=== PATIENT | female | born 2000 | race Caucasian/White ===

== ENCOUNTER 2021-09-10 14:00 | Emergency (ER) | payer SELFPAY ==
[2021-09-10 14:14] VITALS: BP 109/76; PULSE 79; RESP 16; TEMP 36.9; O2SAT 96; BMI 19.8
== END 2021-09-10 16:18 | disposition left against medical advice (07) ==
LOC: HO.ED 16:16
PROVIDERS: Emergency Provider Emergency Medicine
DX: R20.0 Anesthesia of skin (principal)
CPT/HCPCS: 99281; 99282

== ENCOUNTER 2022-04-08 11:59 | Emergency (ER) | payer OTHER, SELFPAY ==
--- NOTE | ~2022-04-08 | XR_ITS ---
EXAMINATION: 1. Radiographs left hand/wrist 2. Radiographs left knee CLINICAL INFORMATION: Pain after fall COMPARISON: None TECHNIQUE: 4 views of the left hand/wrist and 4 views of the left knee were obtained. FINDINGS: Left hand/wrist: Visualized portion of the distal left radius and ulna demonstrate no fracture. Carpal rows are maintained. No carpal bone fracture. No metacarpal or phalangeal fracture. No focal soft tissue swelling. No radiopaque foreign body. Left knee: No fracture or dislocation. No suprapatellar joint effusion. Joint spaces are well-maintained. No focal soft tissue swelling the anterior knee. XR/XR knee LT 4V IMPRESSION: Grossly unremarkable radiographs of the left hand/wrist and left knee.
--- NOTE | ~2022-04-08 | CT_ITS ---
EXAMINATION: CT FACIAL BONES WITHOUT CONTRAST CLINICAL INFORMATION: Fall. Head injury. COMPARISON: None TECHNIQUE: Axial images through the facial bones without contrast. Sagittal and coronal reconstructions on the technologist workstation were performed. This CT examination was performed using dose optimization techniques as appropriate, variously including the following: *Automated exposure control *Adjustment of mA and/or kV according to patient size (this includes techniques or standardized protocols for targeted exams where dose is matched to indication/reason for exam; i.e. extremities or head) *Use of iterative reconstruction technique DLP: 304 mGy-cm FINDINGS: There is a left nasal bone fracture of uncertain age. No other fracture is seen. There is mild membranous soft tissue thickening and small polyps or cysts seen in the maxillary sinuses. Paranasal sinuses are otherwise clear. Mastoid air cells and middle ears are clear. The temporomandibular joints are normal. The orbits are normal. CT/CT facial bones wo con IMPRESSION: Left nasal bone fracture of uncertain age. Mild inflammatory changes of the maxillary sinuses.
--- NOTE | ~2022-04-08 | XR_ITS ---
EXAMINATION: 1. Radiographs left hand/wrist 2. Radiographs left knee CLINICAL INFORMATION: Pain after fall COMPARISON: None TECHNIQUE: 4 views of the left hand/wrist and 4 views of the left knee were obtained. FINDINGS: Left hand/wrist: Visualized portion of the distal left radius and ulna demonstrate no fracture. Carpal rows are maintained. No carpal bone fracture. No metacarpal or phalangeal fracture. No focal soft tissue swelling. No radiopaque foreign body. Left knee: No fracture or dislocation. No suprapatellar joint effusion. Joint spaces are well-maintained. No focal soft tissue swelling the anterior knee. XR/XR hand wrist LT IMPRESSION: Grossly unremarkable radiographs of the left hand/wrist and left knee.
--- NOTE | ~2022-04-08 | CT_ITS ---
EXAMINATION: CT CERVICAL SPINE WITHOUT CONTRAST CLINICAL INFORMATION: Fall. COMPARISON: None TECHNIQUE: Axial images through the cervical spine without contrast. Sagittal and coronal reconstructions on the technologist workstation were performed. This CT examination was performed using dose optimization techniques as appropriate, variously including the following: *Automated exposure control *Adjustment of mA and/or kV according to patient size (this includes techniques or standardized protocols for targeted exams where dose is matched to indication/reason for exam; i.e. extremities or head) *Use of iterative reconstruction technique DLP: 316 mGy-cm. FINDINGS: Bone alignment is normal. No fracture or dislocation is seen. Disc spaces are normal. Prevertebral soft tissues are normal. Visualized lung apices are clear. CT/CT cervical spine wo con IMPRESSION: Unremarkable examination. Fleischner guidelines were followed.
--- NOTE | ~2022-04-08 | CT_ITS ---
EXAMINATION: CT HEAD WITHOUT CONTRAST CLINICAL INFORMATION: Fall. Head injury. COMPARISON: None TECHNIQUE: Contiguous axial imaging was performed from the skull base to vertex without intravenous administration of contrast. This CT examination was performed using dose optimization techniques as appropriate, variously including the following: *Automated exposure control *Adjustment of mA and/or kV according to patient size (this includes techniques or standardized protocols for targeted exams where dose is matched to indication/reason for exam; i.e. extremities or head) *Use of iterative reconstruction technique DLP: 626 mGy-cm FINDINGS: There is no evidence of acute intracranial hemorrhage or territorial infarction. No abnormal mass effect or midline shift is seen. Clark to white matter differentiation is well preserved. No extra-axial fluid collections are identified. The ventricles are normal in size. There is no abnormal attenuation within the brain parenchyma. The osseous structures and soft tissues are normal. The mastoid air cells and visualized portions of the paranasal sinuses are well aerated. CT/CT head/brain wo con IMPRESSION: Unremarkable exam.
[2022-04-08 12:13] VITALS: BP 130/92; PULSE 136; RESP 16; TEMP 36.7; O2SAT 96; BMI 23.0
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
[2022-04-08 12:57] LABS: Appearance Urine HAZY; Color Urine YELLOW; Glucose Urine UA NEG (NEG); Leukocyte Esterase Urine NEG (NEG); Nitrite Urine NEG (NEG); Specific Gravity - Urine >= 1.030 (1.005-1.025); Urine Blood NEG (NEG); Urine Ketones 5 MG/DL (NEG); Urine Protein TRACE MG/DL (NEG-TRACE)
[2022-04-08 13:00] LABS: UPreg QC Valid YES; Urine Pregnancy NEGATIVE (NEGATIVE)
[2022-04-08 13:06] LABS: Basophils Percent Auto 0.4 % (0-2); Eosinophils Absolute Auto 0.1 X10*3/uL (0.0-0.4); Eosinophils Percent Auto 1.6 % (0-4); Hematocrit 36.6 % (37.0-47.0); Hemoglobin 12.2 g/dl (12.0-16.0); Imm Gran Abs Auto 0.01 X10*3/uL (0.00-0.03); Imm Gran Pct Auto 0.1 % (0.0-0.4); Lymphocytes Percent Auto 47.6 % (20-40); MANUAL DIFF FLAG SCAN; Mean Corpuscular HGB Conc 33.3 g/dl (31.0-35.0); Mean Corpuscular Hemoglobin 27.1 pg (27.0-33.0); Mean Corpuscular Volume 81.3 fL (80.0-98.0); Monocytes Absolute Auto 0.9 X10*3/uL (0.1-1.2); Monocytes Percent Auto 11.1 % (2-11); NRBC Pct Auto 0.2 /100WBC (0.0-0.2); Neutrophils Absolute Auto 3.3 x10*3/uL (2.0-8.3); Neutrophils Percent Auto 39.2 % (45-73); PLT CLUMP 1; Red Cell Distribution Width 13.1 % (11.0-16.0); SCAN SMEAR FLAG 1
--- NOTE | 2022-04-08 13:22 | ECG_ITS ---
Test Reason : TACKY Blood Pressure : / mmHG Vent. Rate : 088 BPM Atrial Rate : 088 BPM P-R Int : 112 ms QRS Dur : 080 ms QT Int : 356 ms P-R-T Axes : 055 083 026 degrees QTc Int : 430 ms Normal sinus rhythm Normal ECG No previous ECGs available Referred By: Elizabeth Davis Electronically Signed By:ANJANA CONTRERAS MD
[2022-04-08 13:26] LABS: Ethanol < 10 mg/dL
[2022-04-08 13:30] LABS: Alanine Aminotransferase 15 U/L (0-31); Albumin Level 4.3 g/dL (3.5-5.0); Alkaline Phosphatase 102 U/L (39-117); Anion Gap 12 (12-20); Aspartate Amino Transferase 19 U/L (5-31); Bilirubin Total 0.6 mg/dL (0.0-1.0); Blood Urea Nitrogen 13 mg/dL (9-16); Calcium 9.2 mg/dL (8.4-10.2); Carbon Dioxide 24 mmol/L (22-29); Chloride 104 mmol/L (96-108); Creatinine Clr Calc Pharmacy 83.1; Estimated Glomerular Filt Rate > 60; Glucose Random 81 mg/dL (60-115); Magnesium 2.1 mg/dL (1.6-2.6); Potassium 3.3 mmol/L (3.3-5.1); Sodium 137 mmol/L (135-145); Total Protein 7.2 g/dL (6.5-8.0)
[2022-04-08 13:40] LABS: Amphetamine Screen Urine Not Detected (Not Detect); Barbiturates, Urine Not Detected (Not Detect); Benzodiazepines Screen Urine Not Detected (Not Detect); Cannabinoid Screen Urine Not Detected (Not Detect); Cocaine Screen Urine Not Detected (Not Detect); Fentanyl, urine POSITIVE (Not Detect); Opiate Screen Urine POSITIVE (Not Detect); Phencyclidine Screen Urine POSITIVE (Not Detect)
--- NOTE | 2022-04-08 13:42 | PC.NURSE ---
PT ELOPED AND LEFT OUT THE AMBULANCE BAY WITHOUT ALERTING STAFF.
[2022-04-08 13:45] LABS: White Blood Count 8.4 X10*3/uL (4.8-10.8)
--- NOTE | 2022-04-08 13:46 | MHC.RECOVSUP ---
Recovery Support note: This automatic typewriter inspector met with patient to discuss substance use and treatment options. Patient reports using 4 bundles of heroin daily and that she is interested in getting into detox. Referral sent to [facility] however patient eloped shortly after.
[2022-04-08 13:47] LABS: SLIDE REVIEW VERIFIED
== END 2022-04-08 13:46 | disposition left against medical advice (07) ==
PROVIDERS: Physician Assistant Medical; Emergency Provider Emergency Medicine
DX: S83.92XA Sprain of unspecified site of left knee, initial encounter (principal); S63.92XA Sprain of unspecified part of left wrist and hand, initial encounter; S60.512A Abrasion of left hand, initial encounter; L03.114 Cellulitis of left upper limb; S09.90XA Unspecified injury of head, initial encounter; S09.93XA Unspecified injury of face, initial encounter; F11.10 Opioid abuse, uncomplicated; V18.0XXA Pedal cycle driver injured in noncollision transport accident in nontraffic accident, initial encounter; Y93.55 Activity, bike riding; Y92.410 Unspecified street and highway as the place of occurrence of the external cause; Y99.9 Unspecified external cause status
CPT/HCPCS: 36415; 70450; 70486; 72125; 73110; 73130; 73564; 80053; 80307; 81003; 81025; 82077; 82550; 83735; 85025; 93005; 99283; 99284

== ENCOUNTER 2023-01-12 15:02 | Emergency (ER) | payer OTHER, SELFPAY ==
[2023-01-12 15:30] VITALS: BP 103/64; PULSE 88; RESP 12; TEMP 36.3; O2SAT 100; BMI 21.8
[2023-01-12 15:32] VITALS: BP 98/67; PULSE 110; O2SAT 95
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
[2023-01-12 16:17] VITALS: BP 114/79; PULSE 74; RESP 16; TEMP 36.8
--- NOTE | 2023-01-12 17:11 | ED.PSYCH ---
HPI - Psych General Chief Complaint: Psychiatric Symptoms Stated Complaint: SEC 12, SI(w/ plan) per EMS Time Seen by Provider: 01/12/23 15:55 Source: other (Patient's nurse) Mode of arrival: EMS Limitations: altered mental status History of Present Illness HPI Narrative: Patient comes to the emergency room via EMS. Patient is too somnolent at this time to provide any history. I obtained the history from patient's nurse. EMS reported to the patient's nurse the patient has plans to overdose using heroin cocaine. Patient is on a Section 12. Related Data Previous Rx's Medication Instructions Recorded cephalexin 500 mg capsule 500 mg PO Q6H 10 days #40 caps 04/08/22 sulfamethoxazole 800 1 tab PO BID 10 days #20 tabs 04/08/22 mg-trimethoprim 160 mg tablet (Bactrim DS) Allergies Allergy/AdvReac Type Severity Reaction Status Date / Time No Known Allergies Allergy Verified 09/10/21 14:13 Review of Systems Review of Systems: Yes Unobtainable due to mental condition PMFSH Past Medical History Source: unable to obtain Medical History No known health problems Social History Social History Advance Directives: No Physical Exam Vital Signs: Vital Signs: Last Vital Signs Temp 97.9 F 01/12/23 18:00 Pulse 74 01/12/23 18:00 Resp 16 01/12/23 18:00 BP 106/56 L 01/12/23 18:00 Pulse Ox 97 01/12/23 18:00 O2 Del Method 01/12/23 18:00 BMI result Body Mass Index 21.8 Const: Other: Appearance: Somnolent, easily arousable, wakes up and falls back asleep. Eyes: Pupils equal, round and reactive to light. ENT: Pharynx normal. Neck: Normal inspection. Neck supple. No lymph nodes noted. No crepitus CVS: Normal heart rate and rhythm. Pulses normal. Normal S1 and S2 Respiratory: No respiratory distress. Breath sounds normal. No Wheezing. No rales Abdomen: Soft and nontender. No rigidity. No distention. Skin: Skin warm and dry. Normal skin color. Normal skin turgor. Extremities: No lower extremity edema. No Lacerations. No Rash Neuro: To somnolent, unable to participate in cranial nerve assessment Psych: calm, somnolent Course Course Course Narrative: -patient's vitals are stable. Patient's oxygen saturation 100% on room air. -patient is easily arousable but falls asleep -of patient's labs pending. -patient is on a Section 12 it was started by PD -care team consult pending -physician observation started at 17:10 -21:49, patient feeling restless, states that she is withdrawing from opiates. Patient given 2 mg p.o. Ativan and 50 of Benadryl Medical Decision Making Differential Diagnosis Differential Diagnoses: The differential diagnosis associated with the presentation includes (Anxiety, depression, SI) Admission/Observation Consideration of admission/observation: Escalation of care including admission/observation considered (Patient is under observation waiting to be seen by the care team) Lab Data MDM Lab Attestation statement: I reviewed the patient's lab results. 01/12/23 18:28 01/12/23 18:28 Labs: Lab Results 01/12/23 01/12/23 01/12/23 Range/Units 18:28 18:28 18:28 WBC 6.8 (4.8-10.8) X10*3/uL RBC 4.26 (4.20-5.50) X10*6/uL Hgb 11.7 L (12.0-16.0) g/dl Hct 36.2 L (37.0-47.0) % MCV 85.0 (80.0-98.0) fL MCH 27.5 (27.0-33.0) pg MCHC 32.3 (31.0-35.0) g/dl RDW 13.1 (11.0-16.0) % Plt Count 285 (160-400) X10*3/uL MPV 8.8 L (9.4-12.3) fL Immature Gran % (Auto) 0.1 (0.0-0.4) % Neut % (Auto) 41.3 L (45-73) % Lymph % (Auto) 45.8 H (20-40) % [place] % (Auto) 10.1 (2-11) % Eos % (Auto) 2.0 (0-4) % Baso % (Auto) 0.7 (0-2) % Lymph # (Auto) 3.1 (1.2-4.9) X10*3/uL [place] # (Auto) 0.7 (0.1-1.2) X10*3/uL Eos # (Auto) 0.1 (0.0-0.4) X10*3/uL Baso # (Auto) 0.1 (0.0-0.2) X10*3/uL Abs Immat Gran (auto) 0.01 (0.00-0.03) X10*3/uL Absolute Neuts (auto) 2.8 (2.0-8.3) x10*3/uL Absolute Nucleated RBC 0.000 (0.0-0.012) X10*3/uL Nucleated RBC % (auto) 0.0 (0.0-0.2) /100WBC Sodium 140 (135-145) mmol/L Potassium 3.9 (3.3-5.1) mmol/L Chloride 110 H (96-108) mmol/L Carbon Dioxide 20 L (22-29) mmol/L Anion Gap 14 (12-20) BUN 11 (9-16) mg/dL Creatinine 0.72 (0.5-1.4) mg/dL Estim Creat Clear Calc 95.3 Estimated GFR > 60 Random Glucose 108 (60-115) mg/dL Calcium 8.5 D (8.4-10.2) mg/dL Total Bilirubin 0.2 (0.0-1.0) mg/dL Direct Bilirubin < 0.2 (0.0-0.5) mg/dL AST 13 (5-31) U/L ALT 10 (0-31) U/L Alkaline Phosphatase 85 (39-117) U/L Total Protein 6.0 L (6.5-8.0) g/dL Albumin 3.6 (3.5-5.0) g/dL Beta HCG, Quant < 2 mIU/mL Ethyl Alcohol < 10 mg/dL COVID-19 ([facility]) Negative (Negative) COVID-19 Clin Com See Note Discharge Plan Discharge Clinical Impression: Suicidal ideation, Substance abuse Patient Disposition: Still a Patient Prescriptions: No Action sulfamethoxazole-trimethoprim [Bactrim DS] 800-160 mg tablet 1 tab PO BID 10 Days Qty: 20 0RF cephalexin 500 mg capsule 500 mg PO Q6H 10 Days Qty: 40 0RF
[2023-01-12 18:00] VITALS: BP 106/56; PULSE 74; RESP 16; TEMP 36.6; O2SAT 97
--- NOTE | 2023-01-12 18:00 | MHC.EDTECH ---
1800 rounding and vitals sign taken ,pt lab drawn and covid swab done ,and to lab .
[2023-01-12 18:31] LABS: MANUAL DIFF FLAG NO
[2023-01-12 18:39] LABS: Basophils Absolute Auto 0.1 X10*3/uL (0.0-0.2); Basophils Percent Auto 0.7 % (0-2); Eosinophils Absolute Auto 0.1 X10*3/uL (0.0-0.4); Hematocrit 36.2 % (37.0-47.0); Hemoglobin 11.7 g/dl (12.0-16.0); Imm Gran Abs Auto 0.01 X10*3/uL (0.00-0.03); Imm Gran Pct Auto 0.1 % (0.0-0.4); Lymphocytes Absolute Auto 3.1 X10*3/uL (1.2-4.9); Lymphocytes Percent Auto 45.8 % (20-40); Mean Corpuscular HGB Conc 32.3 g/dl (31.0-35.0); Mean Corpuscular Hemoglobin 27.5 pg (27.0-33.0); Mean Platelet Volume 8.8 fL (9.4-12.3); Monocytes Absolute Auto 0.7 X10*3/uL (0.1-1.2); Monocytes Percent Auto 10.1 % (2-11); Neutrophils Absolute Auto 2.8 x10*3/uL (2.0-8.3); Neutrophils Percent Auto 41.3 % (45-73); Platelet Count 285 X10*3/uL (160-400); Red Blood Count 4.26 X10*6/uL (4.20-5.50); Red Cell Distribution Width 13.1 % (11.0-16.0); White Blood Count 6.8 X10*3/uL (4.8-10.8)
[2023-01-12 18:48] LABS: COVID-19 Test Negative (Negative); IDNOW Serial# BCCEAD1C
[2023-01-12 19:01] LABS: Alanine Aminotransferase 10 U/L (0-31); Albumin Level 3.6 g/dL (3.5-5.0); Alkaline Phosphatase 85 U/L (39-117); Anion Gap 14 (12-20); Aspartate Amino Transferase 13 U/L (5-31); Bilirubin Direct < 0.2 mg/dL (0.0-0.5); Bilirubin Total 0.2 mg/dL (0.0-1.0); Blood Urea Nitrogen 11 mg/dL (9-16); Calcium 8.5 mg/dL (8.4-10.2); Carbon Dioxide 20 mmol/L (22-29); Chloride 110 mmol/L (96-108); Creatinine Clr Calc Pharmacy 95.3; Estimated Glomerular Filt Rate > 60; Ethanol < 10 mg/dL; Glucose Random 108 mg/dL (60-115); HCG Quantitative < 2 mIU/mL; Potassium 3.9 mmol/L (3.3-5.1); Sodium 140 mmol/L (135-145)
--- NOTE | 2023-01-12 19:12 | PC.NURSE ---
assumed care of pt
--- OUTSIDE RECORDS SUMMARY | 2023-01-12 21:34 | XMS_ITS | Continuity of Care Document ---
:2000 Author Organization [facility] Address [address] [place] [address]- Care Team Providers Name Role Phone Not on Staff, PCP Primary Care Physician Unavailable [facility] Date[facility]s): 06/07/21 - 06/07/[address] [address]- Encounter Diagnosis Opiate overdose (Final) - 06/07/21 Discharge Disposition: A-D/C Home Attending Physician: Brie Whitfield MD Admitting Physician: Brie Whitfield MD Referring Physician: Not on Staff, Referring MD Allergies, Adverse Reactions, Alerts Substance Reaction Severity Status NKA Active Immunizations Given and Recorded Vaccine Date Status Refusal Reason Meningococcal Conjugate Vaccine 04/04/16 Given Meningococcal Conjugate Vaccine1 02/22/10 Given influenza virus vaccine, inactivated 08/07/14 Given influenza virus vaccine, inactivated2 01/26/11 Given influenza virus vaccine, live3 12/06/12 Given Human Papillomavirus Vaccine4 01/26/11 Given Human Papillomavirus Vaccine5 02/22/10 Given Human Papillomavirus Vaccine6 12/23/09 Given tetanus/diphtheria/pertussis, acel(Tdap)7 01/26/11 Given Varicella Virus Vaccine8 12/23/09 Given Varicella Virus Vaccine 12/01/99 Given Influenza Inactive (IM) (oldterm)9 09/28/09 Given influ virus vac, H1N1, live(oldterm) 09/28/09 Given Measles/Mumps/Rubella Virus Vaccine 12/26/02 Given Measles/Mumps/Rubella Virus Vaccine 12/01/99 Given Poliovirus Vaccine, Inactivated 12/26/02 Given Poliovirus Vaccine, Inactivated 03/23/99 Given Poliovirus Vaccine, Inactivated 98 Given Poliovirus Vaccine, Inactivated 98 Given Diphth/Pertussis,Acel/Tetanus (oldterm) 12/26/02 Given Diphth/Pertussis,Acel/Tetanus (oldterm) 12/01/99 Given Diphth/Pertussis,Acel/Tetanus (oldterm) 03/23/99 Given Diphth/Pertussis,Acel/Tetanus (oldterm) 98 Given Diphth/Pertussis,Acel/Tetanus (oldterm) 98 Given Pneumococcal Conjugate (PCV7) (oldterm) 08/02/00 Given Haemophilus B Conj Vaccine (oldterm) 12/01/99 Given Haemophilus B Conj Vaccine (oldterm) 03/23/99 Given Haemophilus B Conj Vaccine (oldterm) 98 Given Haemophilus B Conj Vaccine (oldterm) 98 Given Hepatitis B Vaccine (old term) 03/23/99 Given Hepatitis B Vaccine (old term) 98 Given Hepatitis B Vaccine (old term) 98 Given 1Admin Note: vis 12.23.20072Admin Note: VIS dated 07/05/10 and [id number] Note: VIS DATED 05/27/2012 GIVEN.4Admin Note: VIS DATED 02/22/10. [id number] Note: vis 12.28.06 [id number] Note: gardasil #1 / vis 12/28/06 [id number] Note: VIS dated 10/13/088Admin Note: vis given 02/06/089Admin Note: vis 07/04 Medications acetaminophen 325 mg oral tablet 650 mg, By Mouth, Every 4 hours, PRN, (1-3), may give 325mg per patient preference and re-dose with 325mg within 4 hours, if needed. Patient should only receive a total of 650mg of Acetaminophen every 4 hours., Refills 0, Maintenance, Pain , Mild, 0... Start Date: 04/02/20 Status: Orderedibuprofen 800 mg oral tablet 800 mg, 1, tablet, By Mouth, Every 8 hours, PRN, (4-6), may give 400mg per patient preference and re-dose with 400mg within 8 hours if needed. Patient should only receive a total of 800mg of Ibuprofen every 8 hours., Refills 0, Maintenance, Pain , M... 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 Sleep problem (initiation)(Confirmed) 12/23/09 Active Vital Signs Most recent to oldest 1 2 3 [Reference Range]: Oxygen Saturation [94-100 %] 99 % 100 % 100 % (06/07/21 8:40 PM) (06/07/21 6:38 PM) (06/07/21 5:0 9 PM) Pulse Rate [55-90 bpm] 68 bpm 90 bpm 78 bpm (06/07/21 8:40 PM) (06/07/21 6:38 PM) (06/07/21 5:0 9 PM) Blood Pressure [90-138/55-84 mm 106/50 mm Hg 135/99 mm Hg 130/67 mm Hg Hg] (06/07/21 8:40 PM) (06/07/21 5:09 PM) (06/07/21 4:2 8 PM) Respiratory Rate [16-30 br/min] 14 br/min 14 br/min 14 br/min *L* *L* *L* (06/07/21 8:40 PM) (06/07/21 6:38 PM) (06/07/21 5:0 9 PM) Temperature [96.8-100.4 DegF] 98.8 DegF 98.1 DegF (06/07/21 8:40 PM) (06/07/21 4:25 PM) Liters per Minute 2 L/min (06/07/21 4:25 PM) Mode of Delivery (Oxygen) Room air Room air Room a ir (06/07/21 8:40 PM) (06/07/21 6:38 PM) (06/07/21 5:0 9 PM) Temperature Route Oral Oral (06/07/21 8:40 PM) (06/07/21 4:25 PM) Social History Social History Type Response Smoking Status 5-9 cigarettes (between 1/4 to 1/2 pack)/day in last 30 days entered on: 03/27/19 Sex
--- OUTSIDE RECORDS SUMMARY | 2023-01-12 21:34 | XMS_ITS | Continuity of Care Document ---
:2000 Author Organization [facility] Address [address] [place] [address]- Care Team Providers Name Role Phone Not on Staff, PCP Primary Care Physician Unavailable [facility] Date[facility]s): 07/[facility]/20 - 07/01/[address] [address]- [facility] Encounter Diagnosis Acute alcohol intoxication (Final) - 07/01/20 Discharge Disposition: A-D/C Home Attending Physician: Donal Devine DO Admitting Physician: Donal Devine DO Referring Physician: Not on Staff, Referring MD [...] vis 12.23.20072Admin Note: VIS dated 07/05/10 and [id number] Note: VIS DATED 05/27/2012 GIVEN.4Admin Note: VIS DATED 02/22/10. [id number] Note: vis 12.28.06 [id number] Note: gardasil #1 / vis 12/28/06 [id number] Note: VIS dated 10/13/088Admin Note: vis given [...] Active Vital Signs Most recent to oldest [Reference Range]: 1 2 Oxygen Saturation [94-100 %] 100 % 100 % (07/01/20 11:12 PM) (07/01/20 9:34 PM) Pulse Rate [55-90 bpm] 70 bpm 91 bpm (07/01/20 11:12 PM) *H* (07/01/20 9:34 PM) Blood Pressure [90-138/55-84 mm Hg] 117/70 mm Hg 135/ 86 mm Hg (07/01/20 11:12 PM) (07/01/20 9:34 PM) Respiratory Rate [16-30 br/min] 18 br/min 18 br/mi n (07/01/20 11:12 PM) (07/01/20 9:34 PM) Temperature [96.8-100.4 DegF] 97.7 DegF 100.0 DegF (07/01/20 11:12 PM) (07/01/20 9:34 PM) Mode of Delivery (Oxygen) Room air Room air (07/01/20 11:12 PM) (07/01/20 9:34 PM) Blood pressure sites Arm, left Arm, left (07/01/20 11:12 PM) (07/01/20 9:34 PM) Temperature Route Oral Oral (07/01/20 11:12 PM) (07/01/20 9:34 PM) Social History Social History Type Response Smoking Status 5-9 cigarettes (between 1/4 to 1/2 pack)/day in last 30 days entered on: 03/27/19 Sex
--- OUTSIDE RECORDS SUMMARY | 2023-01-12 21:35 | XMS_ITS | Continuity of Care Document ---
:2000 Author Organization [facility] Address [address] [place] [phone]- Care Team Providers Name Role Phone Brittany He MD Primary Care Physician [facility] Date(s): 02/20/22 - 02/20/[address] [address]- Discharge Disposition: A-D/C AMA Attending Physician: Maria Fernanda Zavala MD Admitting Physician: Maria Fernanda Zavala MD Referring Physician: Not on Staff, Referring MD Allergies, Adverse Reactions, Alerts No Known Allergies Immunizations Given and Recorded Vaccine Date Status Refusal Reason tetanus/diphtheria/pertussis, acel(Tdap) 07/14/21 Given tetanus/diphtheria/pertussis, acel(Tdap)1 01/26/11 Given Meningococcal Conjugate Vaccine 04/04/16 Given Meningococcal Conjugate Vaccine2 02/22/10 Given influenza virus vaccine, inactivated 08/07/14 Given influenza virus vaccine, inactivated3 01/26/11 Given influenza virus vaccine, live4 12/06/12 Given Human Papillomavirus Vaccine5 01/26/11 Given Human Papillomavirus Vaccine6 02/22/10 Given Human Papillomavirus Vaccine7 12/23/09 Given Varicella Virus Vaccine8 12/23/09 Given Varicella [...] Vaccine (old term) 98 Given 1Admin Note: VIS dated 10/13/082Admin Note: vis 12.23.20073Admin Note: VIS dated 07/05/10 and [id number] Note: VIS DATED 05/27/2012 GIVEN.5Admin Note: VIS DATED 02/22/10. [id number] Note: vis 12.28.06 [id number] Note: gardasil #1 / vis 12/28/06 [id number] Note: vis given 02/06/089Admin Note: vis 07/04 Medications Doxycycline 100 mg, By Mouth, 2 times a day, Maintenance, 01/06/22 18:02:00 EST Start Date: 01/06/22 Stop Date: 01/13/22 Status: Ordereddoxycycline monohydrate 100 mg oral capsule 1 capsule = 100 mg, By Mouth, 2 times a day, for 10 days, # 20 capsule, 0 Refills, Acute 02/26/22 14:32:00 EDT, 02/16/22 14:32:00 EDT, Capsule, [facility]/pharmacy #[id number], Partial fill upon patient request if the prescription is for a schedule II opioid drug.... Start Date: 02/16/22 Stop Date: 02/26/22 Status: OrderedMacrobid macrocrystals-monohydrate 100 mg oral capsule 1 capsule = 100 mg, By Mouth, 2 times a day, for 5 days, # 10 capsule, 0 Refills, Acute 02/21/22 14:32:00 EDT, 02/16/22 14:32:00 EDT, Capsule, [facility]/pharmacy #[id number], Partial fill upon patient request if the prescription is for a schedule II opioid drug.,... Start Date: 02/16/22 Stop Date: 02/21/22 Status: Orderedondansetron 4 mg oral tablet 1 tablet = 4 mg, By Mouth, Every 8 hours, PRN Nausea & Vomiting, # 20 tablet, 0 Refills, Maintenance, 07/23/21 16:13:00 EDT, Tablet, [id number], Partial fill upon patient request if the prescription is for a schedule II opioid drug., 165, cm,... Start Date: 07/23/21 Status: Orderedondansetron 4 mg oral tablet, disintegrating 1 tablet = 4 mg, By Mouth, Every 8 hours, PRN as needed for nausea/vomiting, # 9 tablet, 0 Refills, Maintenance, 12/04/21 12:22:00 EST, DIS Tablet, [id number], Partial fill upon patient request, 165, cm, 06/26/21 18:36:00 EDT, Height, 55, kg,... Start Date: 12/04/21 Stop Date: 12/07/21 Status: OrderedSuboxone 8 mg-2 mg Sublingual Film 2 film, Sublingual, Daily, dissolve under the tongue, # 14 film, 0 Refills, Maintenance, 07/23/21 16:13:00 EDT, Film, [facility]/pharmacy #[id number], PRITESH-X: [id number], 2 film Sublingual Daily,Instr:dissolve under the tongue, 165, cm, 06/26/21 18:36:00 EDT, Heigh... 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 Sleep problem (initiation)(Confirmed) 12/23/09 Active Vital Signs Most recent to oldest [Reference Range]: 1 Oxygen Saturation [94-100 %] 99 % (02/20/22 7:23 AM) Pulse Rate [55-90 bpm] 80 bpm (02/20/22 7:23 AM) Blood Pressure [90-138/55-84 mm Hg] 102/76 mm Hg (02/20/22 7:23 AM) Respiratory Rate [16-30 br/min] 16 br/min (02/20/22 7:23 AM) Temperature [96.8-100.4 DegF] 97.8 DegF (02/20/22 7:23 AM) Mode of Delivery (Oxygen) Room air (02/20/22 7:23 AM) Blood pressure sites Arm, right (02/20/22 7:23 AM) Temperature Route Oral (02/20/22 7:23 AM) Social History Social History Type Response Smoking Status 5-9 cigarettes (between 1/4 to 1/2 pack)/day in last 30 days entered on: 03/27/19 Sex
--- OUTSIDE RECORDS SUMMARY | 2023-01-12 21:35 | XMS_ITS | Continuity of Care Document ---
:2000 Author Organization [facility] Address [address] [place] [address]- Care Team Providers Name Role Phone Neri YANEZ, Brittany Primary Care Physician [facility] Date[facility]s): 11/[facility]/19 - 11/06/[address] [address]- [facility] Attending Physician: Angelika Baxter CNM Allergies, Adverse Reactions, Alerts Substance Reaction Severity [...] vis 12.23.20072Admin Note: VIS dated 07/05/10 and [id number] Note: VIS DATED 05/27/2012 GIVEN.4Admin Note: VIS DATED 02/22/10. [id number] Note: vis 12.28.06 [id number] Note: gardasil #1 / vis 12/28/06 [id number] Note: VIS dated 10/13/088Admin Note: vis given 02/06/089Admin Note: vis 07/04 Problem List Condition Effective Dates Status Health Status Informant Functional vision problem (Corrective 12/16/08 Active lens)(Confirmed) Recurrent herpes labialis(Confirmed) Active Sleep problem (initiation)(Confirmed) 12/23/09 Active Social History Social History Type Response Smoking Status 5-9 cigarettes (between 1/4 to 1/2 pack)/day in last 30 days entered on: 03/27/19 Sex
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
--- OUTSIDE RECORDS SUMMARY | 2023-01-12 21:35 | XMS_ITS | Continuity of Care Document ---
:1998 Author Organization [facility] Address [address] [place] [address]- Care Team Providers Name Role Phone Not on Staff, PCP Primary Care Physician Unavailable [facility] 07[facility] - 07/14/[address] [address]- Encounter Diagnosis Closed head injury (Final) - 07/14/21 Discharge Disposition: Transfer to [facility] Facility Attending Physician: Jass Mendes DO Admitting Physician: Jass Mendes DO Referring Physician: Not on Staff, Referring [...] vis [id number] Note: VIS dated 07/05/10 and [id number] Note: VIS DATED 05/27/2012 GIVEN.5Admin Note: VIS DATED 02/22/10. 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 Sleep problem (initiation)(Confirmed) 12/23/09 Active Vital Signs Most recent to oldest [Reference Range]: 1 2 Oxygen Saturation [94-100 %] 98 % 99 % (07/14/21 11:02 PM) (07/14/21 8:54 PM) Pulse Rate [55-90 bpm] 75 bpm 81 bpm (07/14/21 11:02 PM) (07/14/21 8:54 PM) Blood Pressure [90-138/55-84 mm Hg] 119/81 mm Hg 121/ 81 mm Hg (07/14/21 11:02 PM) (07/14/21 8:54 PM) Respiratory Rate [16-30 br/min] 18 br/min 17 br/mi n (07/14/21 11:02 PM) (07/14/21 8:54 PM) Temperature [96.8-100.4 DegF] 98.1 DegF 98.2 DegF (07/14/21 11:02 PM) (07/14/21 8:54 PM) Mode of Delivery (Oxygen) Room air Room air (07/14/21 11:02 PM) (07/14/21 8:54 PM) Blood pressure sites Arm, left Arm, left (07/14/21 11:02 PM) (07/14/21 8:54 PM) Temperature Route Oral Oral (07/14/21 11:02 PM) (07/14/21 8:54 PM) Social History Social History Type Response Smoking Status 5-9 cigarettes (between 1/4 to 1/2 pack)/day in last 30 days entered on: 03/27/19 Sex
--- OUTSIDE RECORDS SUMMARY | 2023-01-12 21:35 | XMS_ITS | Continuity of Care Document ---
:1998 Author Organization [facility] Address [address] [place] [address]- Care Team Providers Name Role Phone Neri YANEZ, Brittany Primary Care Physician [facility] 12[facility] - 12/23/[address] [address]- [facility] Attending Physician: Angelika Baxter CNM Allergies, [...] vis [id number] Note: VIS dated 07/05/10 and sicwa9Ioucq Note: VIS DATED 05/27/2012 GIVEN.4Admin Note: VIS DATED 02/22/10. 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 REPORT STATUS : FINAL 12/20/2019 Social History Social History Type Response Smoking Status 5-9 cigarettes (between 1/4 to 1/2 pack)/day in last 30 days entered on: 03/27/19 Sex
--- OUTSIDE RECORDS SUMMARY | 2023-01-12 21:35 | XMS_ITS | Continuity of Care Document ---
:1998 Author Organization [facility] Address [address] [place] [address]- Care Team Providers Name Role Phone Not on Staff, PCP Primary Care Physician Unavailable [facility]s): 08/07/21 - 08/07/[address] [address]- Discharge Disposition: A-D/C Home Attending Physician: Fay Ramirez MD Admitting Physician: Fay Ramirez MD Referring Physician: Not on Staff, Referring [...] vis [id number] Note: VIS dated 07/05/10 and xhzka6Kmpyt Note: VIS DATED 05/27/2012 GIVEN.5Admin Note: VIS DATED 02/22/10. Lshyj4Wjjbn Note: vis 12.28.06 cpxsj3Ouxdt Note: gardasil #1 / vis 12/28/06 gqasy5Ofzba Note: vis given 02/06/089Admin Note: vis 07/04 Medications ondansetron 4 mg oral tablet 1 tablet = 4 mg, By Mouth, Every 8 hours, PRN Nausea & Vomiting, # 20 tablet, 0 Refills, Maintenance, 07/23/21 16:13:00 EDT, Tablet, [facility]/pharmacy #[id number], Partial fill upon patient request if the prescription is for a schedule II opioid drug., 165, cm,... Start Date: 07/23/21 Status: OrderedSuboxone 8 mg-2 mg Sublingual Film 2 film, Sublingual, Daily, dissolve under the tongue, # 14 film, 0 Refills, Maintenance, 07/23/21 16:13:00 EDT, Film, [id number], PRITESH-X: [id number], 2 film Sublingual Daily,Instr:dissolve under the tongue, [...]
--- OUTSIDE RECORDS SUMMARY | 2023-01-12 21:35 | XMS_ITS | Continuity of Care Document ---
:1998 Author Organization [facility] Address [address] [place] [address]- Care Team Providers Name Role Phone Not on Staff, PCP Primary Care Physician Unavailable [facility] Date[facility]s): 09/12/20 - 09/12/[address] [address]- [facility] Discharge Disposition: A-D/C Home Attending Physician: Carlyn Danielle MD Admitting Physician: Carlyn Danielle MD Referring Physician: Not on Staff, Referring [...] vis [id number] Note: VIS dated 07/05/10 and ofgzg9Ilsjy Note: VIS DATED 05/27/2012 GIVEN.4Admin Note: VIS DATED 02/22/10. Lqrxs9Xllvs Note: vis 12.28.06 tjowq2Yengv Note: gardasil #1 / vis 12/28/06 svjct2Avnyf Note: VIS dated 10/13/088Admin Note: vis given [...] [Reference Range]: 1 Oxygen Saturation [94-100 %] 97 % (09/12/20 4:18 AM) Pulse Rate [55-90 bpm] 96 bpm *H* (09/12/20 4:18 AM) Blood Pressure [90-138/55-84 mm Hg] 134/78 mm Hg (09/12/20 4:18 AM) Respiratory Rate [16-30 br/min] 18 br/min (09/12/20 4:18 AM) Temperature [96.8-100.4 DegF] 98.9 DegF (09/12/20 4:18 AM) Mode of Delivery (Oxygen) Room air (09/12/20 4:18 AM) Blood pressure sites Arm, right (09/12/20 4:18 AM) Temperature Route Oral (09/12/20 4:18 AM) Social History Social History Type Response Smoking Status 5-9 cigarettes (between 1/4 to 1/2 pack)/day in last 30 days entered on: 03/27/19 Sex
--- OUTSIDE RECORDS SUMMARY | 2023-01-12 21:35 | XMS_ITS | Continuity of Care Document ---
:1998 Author Organization [facility] Address [address] [place] [address]- Care Team Providers Name Role Phone Brittany He MD Primary Care Physician [facility] Date(s): 12/04/21 - 12/04/[address] [address]- Encounter Diagnosis COVID-19 (Final) - 12/04/21 Discharge Disposition: A-D/C Home Attending Physician: Arpita Cannon MD Admitting Physician: Arpita Cannon MD Referring Physician: Not on Staff, Referring [...] vis [id number] Note: VIS dated 07/05/10 and [id number] Note: VIS DATED 05/27/2012 GIVEN.5Admin Note: VIS DATED 02/22/10. Bkqfm1Dqnkf Note: vis 12.28.06 rolyk2Kqymq Note: gardasil #1 / vis 12/28/06 iakdl0Ctcna Note: vis given 02/06/089Admin Note: vis 07/04 Medications ondansetron 4 mg oral tablet 1 tablet = 4 mg, By Mouth, Every 8 hours, PRN Nausea & Vomiting, # 20 tablet, 0 Refills, Maintenance, 07/23/21 16:13:00 EDT, Tablet, [facility]/pharmacy #[id number], Partial fill upon patient request if [...] 0 Refills, Maintenance, 07/23/21 16:13:00 EDT, Film, [facility]/pharmacy #[id number], PRITESH-X: [id number], 2 film Sublingual Daily,Instr:dissolve under the tongue, 165, cm, 06/26/21 18:36:00 EDT, Heigh... 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 Sleep problem (initiation)(Confirmed) 12/23/09 Active Vital Signs Most recent to oldest [Reference Range]: 1 2 Oxygen Saturation [94-100 %] 100 % 99 % (12/04/21 2:00 PM) (12/04/21 10:36 AM) Pulse Rate [55-90 bpm] 82 bpm 97 bpm (12/04/21 2:00 PM) *H* (12/04/21 10:36 AM) Blood Pressure [90-138/55-84 mm Hg] 112/78 mm Hg 109/ 59 mm Hg (12/04/21 2:00 PM) (12/04/21 10:36 AM) Respiratory Rate [16-30 br/min] 16 br/min 18 br/mi n (12/04/21 2:00 PM) (12/04/21 10:36 AM) Temperature [96.8-100.4 DegF] 99 DegF 99.4 DegF (12/04/21 2:00 PM) (12/04/21 10:36 AM) Mode of Delivery (Oxygen) Room air Room air (12/04/21 2:00 PM) (12/04/21 10:36 AM) Blood pressure sites Arm, left Arm, left (12/04/21 2:00 PM) (12/04/21 10:36 AM) Temperature Route Oral Oral (12/04/21 2:00 PM) (12/04/21 10:36 AM) Social History Social History Type Response Smoking Status 5-9 cigarettes (between 1/4 to 1/2 pack)/day in last 30 days entered on: 03/27/19 Sex
--- OUTSIDE RECORDS SUMMARY | 2023-01-12 21:35 | XMS_ITS | Continuity of Care Document ---
:1998 Author Organization [facility] Address [address] [place] [address]- Care Team Providers Name Role Phone Brittany He MD Primary Care Physician [facility]s): 04/08/22 - 04/08/[address] [address]- Discharge Disposition: A-D/C Walkout Attending Physician: Not on Staff, Attending MD Admitting Physician: Not on Staff, Admitting MD Referring Physician: Not on Staff, Referring [...] vis [id number] Note: VIS dated 07/05/10 and ycuzk7Nwtgi Note: VIS DATED 05/27/2012 GIVEN.5Admin Note: VIS DATED 02/22/10. Uuegn5Tqber Note: vis 12.28.06 botlk9Dakcs Note: gardasil #1 / vis 12/28/06 awpds0Gdawn Note: vis given 02/06/089Admin Note: vis 07/04 Medications Doxycycline 100 mg, By Mouth, 2 times a day, Maintenance, 01/06/22 18:02:00 EST Start Date: 01/06/22 Stop Date: 01/13/22 Status: Orderedondansetron 4 mg oral tablet 1 tablet = 4 mg, By Mouth, Every 8 hours, PRN Nausea & Vomiting, # 20 tablet, 0 Refills, Maintenance, 07/23/21 16:13:00 EDT, Tablet, [facility]/pharmacy #[id number], Partial fill upon patient request if the prescription is for a schedule II opioid drug., 165, cm,... Start Date: 07/23/21 Status: Orderedondansetron 4 mg oral tablet, disintegrating 1 tablet = 4 mg, By Mouth, Every 8 hours, PRN as needed for nausea/vomiting, # 9 tablet, 0 Refills, Maintenance, 12/04/21 12:22:00 EST, DIS Tablet, [facility]/pharmacy #[id number], Partial fill upon patient request, 165, cm, 06/26/21 18:36:00 EDT, Height, 55, kg,... Start Date: 12/04/21 Stop Date: 12/07/21 Status: OrderedSuboxone 8 mg-2 mg Sublingual Film 2 film, Sublingual, Daily, dissolve under the tongue, # 14 film, 0 Refills, Maintenance, 07/23/21 16:13:00 EDT, Film, [facility]/pharmacy #[id number], PRITESH-X: [id number], 2 film Sublingual Daily,Instr:dissolve under the tongue, [...]
--- OUTSIDE RECORDS SUMMARY | 2023-01-12 21:35 | XMS_ITS | Continuity of Care Document ---
:1998 Author Organization [facility] Address [address] [place] [address]- Care Team Providers Name Role Phone Not on Staff, PCP Primary Care Physician Unavailable [facility] Date[facility]s): 06/26/21 - 06/26/[address] [address]- Discharge Disposition: A-D/C Home Attending Physician: Manoj Burns MD Admitting Physician: Manoj Burns MD Referring Physician: Not on Staff, Referring [...] vis [id number] Note: VIS dated 07/05/10 and [id number] Note: VIS DATED 05/27/2012 GIVEN.4Admin Note: VIS DATED 02/22/10. Ijgta1Xhelt Note: vis 12.28.06 owqas2Bboey Note: gardasil #1 / vis 12/28/06 ibebz9Nfjuy Note: VIS dated 10/13/088Admin Note: vis given [...] recent to oldest [Reference Range]: 1 2 Height 165 cm 165 cm (06/26/21 6:36 PM) (06/26/21 2:35 PM) Weight 55 kg 55 kg (06/26/21 6:36 PM) (06/26/21 2:35 PM) Oxygen Saturation [94-100 %] 100 % (06/26/21 2:35 PM) Pulse Rate [55-90 bpm] 68 bpm (06/26/21 2:35 PM) Blood Pressure [90-138/55-84 mm Hg] 127/81 mm Hg (06/26/21 2:35 PM) Respiratory Rate [16-30 br/min] 20 br/min (06/26/21 2:35 PM) Temperature [96.8-100.4 DegF] 97.9 DegF (06/26/21 2:35 PM) Mode of Delivery (Oxygen) Room air (06/26/21 2:35 PM) Temperature Route Oral (06/26/21 2:35 PM) Dry Weight 55 kg 55 kg (06/26/21 6:36 PM) (06/26/21 2:35 PM) Social History Social History Type Response Smoking Status 5-9 cigarettes (between 1/4 to 1/2 pack)/day in last 30 days entered on: 03/27/19 Sex
--- OUTSIDE RECORDS SUMMARY | 2023-01-12 21:35 | XMS_ITS | Continuity of Care Document ---
:1998 Author Organization Address [address] [place] [address]- Care Team Providers Name Role Phone Not on Staff, PCP Primary Care Physician Unavailable [facility]s): 07/13/21 - 07/13/[address] [address]- Discharge Disposition: A-D/C Home Attending Physician: Alin Allen MD Admitting Physician: Alin Allen MD Referring Physician: Not on Staff, Referring [...] vis [id number] Note: VIS dated 07/05/10 and fncgy3Tuozq Note: VIS DATED 05/27/2012 GIVEN.4Admin Note: VIS DATED 02/22/10. 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 Sleep problem (initiation)(Confirmed) 12/23/09 Active Vital Signs Most recent to oldest [Reference Range]: 1 2 Oxygen Saturation [94-100 %] 99 % 95 % (07/13/21 6:35 AM) (07/13/21 4:02 AM) Pulse Rate [55-90 bpm] 81 bpm 87 bpm (07/13/21 6:35 AM) (07/13/21 4:02 AM) Blood Pressure [90-138/55-84 mm Hg] 120/68 mm Hg 117/ 68 mm Hg (07/13/21 6:35 AM) (07/13/21 4:02 AM) Respiratory Rate [16-30 br/min] 18 br/min 18 br/mi n (07/13/21 6:35 AM) (8/18/21 4:02 AM) Temperature [96.8-100.4 DegF] 98.0 DegF 98.0 DegF (07/13/21 6:35 AM) (07/13/21 4:02 AM) Mode of Delivery (Oxygen) Room air Room air (07/13/21 6:35 AM) (07/13/21 4:02 AM) Temperature Route Oral Oral (07/13/21 6:35 AM) (07/13/21 4:02 AM) Social History Social History Type Response Smoking Status 5-9 cigarettes (between 1/4 to 1/2 pack)/day in last 30 days entered on: 03/27/19 Sex
--- OUTSIDE RECORDS SUMMARY | 2023-01-12 21:35 | XMS_ITS | Continuity of Care Document ---
:1998 Author Organization [facility] Address [address] [place] [address]- Care Team Providers Name Role Phone Brittany He MD Primary Care Physician [facility] Date(s): 03/14/20 - 03/14/[address] [address]- [facility] Discharge Disposition: A-D/C Home Attending Physician: Gaurav Moncada MD Admitting Physician: Gaurav Moncada MD Referring Physician: Gaurav Moncada MD Allergies, Adverse Reactions, Alerts Substance Reaction [...] vis [id number] Note: VIS dated 07/05/10 and wvgny4Wnijj Note: VIS DATED 05/27/2012 GIVEN.4Admin Note: VIS DATED 02/22/10. 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 Sleep problem (initiation)(Confirmed) 12/23/09 Active Vital Signs Most recent to oldest [Reference Range]: 1 Height 170 cm (03/14/20 4:44 AM) Weight 72.0 kg (03/14/20 4:33 AM) Oxygen Saturation [94-100 %] 98 % (03/14/20 4:44 AM) Pulse Rate [55-90 bpm] 81 bpm (03/14/20 4:44 AM) Blood Pressure [90-138/55-84 mm Hg] 103/64 mm Hg (03/14/20 4:44 AM) Respiratory Rate [16-30 br/min] 16 br/min (03/14/20 4:44 AM) Temperature [96.8-100.4 DegF] 97.7 DegF (03/14/20 4:44 AM) Blood pressure sites Arm, right (03/14/20 4:44 AM) Temperature Route Oral (03/14/20 4:44 AM) Dry Weight 72.0 kg (03/14/20 4:33 AM) Social History Social History Type Response Smoking Status 5-9 cigarettes (between 1/4 to 1/2 pack)/day in last 30 days entered on: 03/27/19 Sex
--- OUTSIDE RECORDS SUMMARY | 2023-01-12 21:35 | XMS_ITS | Continuity of Care Document ---
:1998 Author Organization [facility] Address [address] [place] [address]- Care Team Providers Name Role Phone Brittany He MD Primary Care Physician [facility] Date(s): 04/01/20 - 04/03/[address] [address]- [facility] Discharge Disposition: A-D/C Home Attending Physician: [...] vis [id number] Note: VIS dated 07/05/10 and krdpo1Blskq Note: VIS DATED 05/27/2012 GIVEN.4Admin Note: VIS DATED 02/22/10. Xlgqm2Zhkxx Note: vis 12.28.06 lzzog2Yrnvd Note: gardasil #1 / vis 12/28/06 buzpu6Yrxch Note: VIS dated 10/13/088Admin Note: vis given [...] to oldest 1 2 3 [Reference Range]: Height 174 cm (04/01/20 9:15 PM) Weight 75.8 kg 75.8 kg (04/01/20 9:15 PM) (04/01/20 5:25 PM) Oxygen Saturation [94-100 98 % 99 % 100 % %] (04/02/20 4:00 AM) (04/02/20 3:30 AM) (04/02/20 3:00 A M) Pulse Rate [55-90 bpm] 89 bpm (04/01/20 9:15 PM) Body Mass Index 25.04 [18.5-24.99] *H* (04/01/20 9:15 PM) Blood Pressure 106/56 mm Hg 118/81 mm Hg 122/83 mm Hg [90-138/55-84 mm Hg] (04/03/20 8:17 AM) (04/02/20 9:57 PM) (04/02/20 4 :45 PM) Respiratory Rate [16-30 19 br/min 20 br/min 20 br/mi n br/min] (04/03/20 8:17 AM) (04/03/20 1:09 AM) (04/03/20 1:08 A M) Temperature [96.8-100.4 98.1 DegF 98.4 DegF 98.2 Deg F DegF] (04/03/20 8:17 AM) (04/02/20 9:57 PM) (04/02/20 4:45 P M) Mode of Delivery (Oxygen) Room air Room air Room a ir (04/02/20 3:00 AM) (04/02/20 2:30 AM) (04/02/20 1:40 A M) Blood pressure sites Arm, left Arm, left Arm, left (04/02/20 1:00 AM) (04/02/20 12:30 AM) (04/01/20 11:15 PM) Temperature Route Oral Oral Oral (04/03/20 8:17 AM) (04/02/20 9:57 PM) (04/02/20 4:45 P M) Dry Weight 75.8 kg 75.8 kg (04/01/20 9:15 PM) (04/01/20 5:25 PM) Weight Obtained Via Patient/family stated Standing scale (04/01/20 9:15 PM) (04/01/20 5:25 PM) Dry Weight Obtained Via Standing scale (04/01/20 5:25 PM) Social History Social History Type Response Smoking Status 5-9 cigarettes (between 1/4 to 1/2 pack)/day in last 30 days entered on: 03/27/19 Sex
--- OUTSIDE RECORDS SUMMARY | 2023-01-12 21:35 | XMS_ITS | Continuity of Care Document ---
:1998 Author Organization [facility] Address [address] [place] [address]- Care Team Providers Name Role Phone Brittany He MD Primary Care Physician [facility](s): 02/16/22 - 02/16/[address] [address]- Encounter Diagnosis Acute lower UTI (Final) - 02/16/22 Discharge Disposition: A-D/C Home Attending Physician: Donal Devine DO Admitting Physician: Doanl Devine DO Referring Physician: Not on Staff, [...] vis [id number] Note: VIS dated 07/05/10 and klmck7Jming Note: VIS DATED 05/27/2012 GIVEN.5Admin Note: VIS DATED 02/22/10. Amwpw9Fboge Note: vis 12.28.06 kzwxi9Ehkqb Note: gardasil #1 / vis 12/28/06 nnmaw3Pgthl Note: vis given 02/06/089Admin Note: vis 07/04 Medications Doxycycline 100 mg, By Mouth, 2 times a day, Maintenance, 01/06/22 18:02:00 EST Start Date: 01/06/22 Stop Date: 01/13/22 Status: Ordereddoxycycline monohydrate 100 mg oral capsule 1 capsule = 100 mg, By Mouth, 2 times a day, for 10 days, # 20 capsule, 0 Refills, Acute 02/26/22 14:32:00 EDT, 02/16/22 14:32:00 EDT, Capsule, [id number], Partial fill upon patient request if the prescription is for a schedule II opioid drug.... Start Date: 02/16/22 Stop Date: 02/26/22 Status: OrderedMacrobid macrocrystals-monohydrate 100 mg oral capsule 1 capsule = 100 mg, By Mouth, 2 times a day, for 5 days, # 10 capsule, 0 Refills, Acute 02/21/22 14:32:00 EDT, 02/16/22 14:32:00 EDT, Capsule, [facility]/pharmacy #[id number], Partial fill upon patient request if the prescription is for a schedule II opioid drug.,... Start Date: 02/16/22 Stop Date: 02/21/22 Status: Orderedondansetron 4 mg oral tablet 1 tablet = 4 mg, By Mouth, Every 8 hours, PRN Nausea & Vomiting, # 20 tablet, 0 Refills, Maintenance, 07/23/21 16:13:00 EDT, Tablet, [facility]/pharmacy #[id number], Partial fill upon patient request [...] 0 Refills, Maintenance, 07/23/21 16:13:00 EDT, Film, [facility]/pharmacy #[id number], PRITESH-X: [id number], 2 film Sublingual Daily,Instr:dissolve under the tongue, 165, cm, 06/26/21 18:36:00 EDT, Heigh... 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 Sleep problem (initiation)(Confirmed) 12/23/09 Active Vital Signs Most recent to oldest [Reference Range]: 1 2 Oxygen Saturation [94-100 %] 98 % 99 % (02/16/22 2:55 PM) (02/16/22 1:13 PM) Pulse Rate [55-90 bpm] 86 bpm 92 bpm (02/16/22 2:55 PM) *H* (02/16/22 1:13 PM) Blood Pressure [90-138/55-84 mm Hg] 119/68 mm Hg 109/ 72 mm Hg (02/16/22 2:55 PM) (02/16/22 1:13 PM) Respiratory Rate [16-30 br/min] 19 br/min 20 br/mi n (02/16/22 2:55 PM) (02/16/22 1:13 PM) Temperature [96.8-100.4 DegF] 98.2 DegF 97.8 DegF (02/16/22 2:55 PM) (02/16/22 1:13 PM) Mode of Delivery (Oxygen) Room air Room air (02/16/22 2:55 PM) (02/16/22 1:13 PM) Blood pressure sites Arm, left (02/16/22 1:13 PM) Temperature Route Oral Oral (02/16/22 2:55 PM) (02/16/22 1:13 PM) Social History Social History Type Response Smoking Status 5-9 cigarettes (between 1/4 to 1/2 pack)/day in last 30 days entered on: 03/27/19 Sex
--- OUTSIDE RECORDS SUMMARY | 2023-01-12 21:35 | XMS_ITS | Continuity of Care Document ---
:1998 Author Organization [facility] Address [address] [place] [address]- Care Team Providers Name Role Phone Brittany He MD Primary Care Physician [facility]): 04/17/22 - 04/17/[address] [address]- Discharge Disposition: A-D/C Walkout Attending Physician: Not [...] vis [id number] Note: VIS dated 07/05/10 and eyuim6Jufhi Note: VIS DATED 05/27/2012 GIVEN.5Admin Note: VIS DATED 02/22/10. Pzfql3Cwzvd Note: vis 12.28.06 dmgce7Hgsdo Note: gardasil #1 / vis 12/28/06 wddnn0Yibnr Note: vis given 02/06/089Admin Note: vis 07/04 Medications Doxycycline 100 mg, By Mouth, 2 times a day, Maintenance, 01/06/22 18:02:00 EST Start Date: 01/06/22 Stop Date: 01/13/22 Status: Orderedondansetron 4 mg oral tablet 1 tablet = 4 mg, By Mouth, Every 8 hours, PRN Nausea & Vomiting, # 20 tablet, 0 Refills, Maintenance, 07/23/21 16:13:00 EDT, Tablet, [facility]/pharmacy #[id number], Partial fill upon patient request if the prescription is for a schedule II opioid drug., 165, cm,... Start Date: 07/23/21 Status: Orderedondansetron 4 mg oral tablet, disintegrating 1 tablet = 4 mg, By Mouth, Every 8 hours, PRN as needed for nausea/vomiting, # 9 tablet, 0 Refills, Maintenance, 12/04/21 12:22:00 EST, DIS Tablet, [facility]/pharmacy #[id number], Partial fill upon patient request, 165, cm, 06/26/21 18:36:00 EDT, Height, 55, kg,... Start Date: 12/04/21 Stop Date: 12/07/21 Status: OrderedSuboxone 8 mg-2 mg Sublingual Film 2 film, Sublingual, Daily, dissolve under the tongue, # 14 film, 0 Refills, Maintenance, 07/23/21 16:13:00 EDT, Film, [facility]/pharmacy #[id number], PRITESH-X: [id number], 2 film Sublingual Daily,Instr:dissolve under the tongue, [...]
--- OUTSIDE RECORDS SUMMARY | 2023-01-12 21:35 | XMS_ITS | Continuity of Care Document ---
:1998 Author Organization [facility] Address [address] [place] [address]- Care Team Providers Name Role Phone Neri YANEZ, Brittany Primary Care Physician [facility] 01/[facility]20 - 01/06/[address] [address]- [facility] Attending Physician: Angelika Baxter CNM Allergies, [...] vis [id number] Note: VIS dated 07/05/10 and [id number] Note: VIS DATED 05/27/2012 GIVEN.[email or web address] Note: VIS DATED 02/22/10. [id number] Note: vis 12.28.06 [id number] Note: gardasil #1 / vis 12/28/06 [id number] Note: VIS dated 10/13/088Admin Note: vis given [...]
--- OUTSIDE RECORDS SUMMARY | 2023-01-12 21:35 | XMS_ITS | Continuity of Care Document ---
:2000 Author Organization [facility] Address [address] [place] [phone]- Care Team Providers Name Role Phone Not on Staff, PCP Primary Care Physician Unavailable Encounter [facility] Date(s): 07/23/21 - 07/23/[address] [address]- Encounter Diagnosis Opioid abuse (Final) - 07/23/21 Polysubstance abuse (Final) - 07/23/21 Discharge Disposition: A-D/C Home Attending Physician: Jayden Banegas MD Admitting Physician: Jayden Banegas MD Referring Physician: Not on Staff, Referring [...] vis [id number] Note: VIS dated 07/05/10 and [id number] Note: VIS DATED 05/27/2012 GIVEN.5Admin Note: VIS DATED 02/22/10. [id number] Note: vis 12.28.06 [id number] Note: gardasil #1 / vis 12/28/06 [id number] Note: vis given 02/06/089Admin Note: vis 07/04 Medications ondansetron 4 mg oral tablet 1 tablet = 4 mg, By Mouth, Every 8 hours, PRN Nausea & Vomiting, # 20 tablet, 0 Refills, Maintenance, 07/23/21 16:13:00 EDT, Tablet, [facility]/pharmacy #[id number], Partial fill upon patient request if the prescription is for a schedule II opioid drug., 165, cm,... Start Date: 07/23/21 Status: OrderedSuboxone 8 mg-2 mg Sublingual Film 2 film, Sublingual, Daily, dissolve under the tongue, # 14 film, 0 Refills, Maintenance, 07/23/21 16:13:00 EDT, Film, [facility][id number], PRITESH-X: [id number], 2 film Sublingual Daily,Instr:dissolve under the tongue, 165, cm, 06/26/21 18:36:00 EDTGabe. 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 Sleep problem (initiation)(Confirmed) 12/23/09 Active Vital Signs Most recent to oldest 1 2 3 [Reference Range]: Oxygen Saturation [94-100 %] 100 % 99 % 100 % (07/23/21 6:39 PM) (07/23/21 5:09 PM) (07/23/21 3:1 5 PM) Pulse Rate [55-90 bpm] 83 bpm 90 bpm 99 bpm (07/23/21 6:39 PM) (07/23/21 5:09 PM) *H* (07/23/21 3:15 PM ) Blood Pressure [90-138/55-84 105/63 mm Hg 100/66 mm Hg 105 /67 mm Hg mm Hg] (07/23/21 6:39 PM) (07/23/21 5:09 PM) (07/23/21 3:1 5 PM) Respiratory Rate [16-30 16 br/min 16 br/min 15 br/mi n br/min] (07/23/21 6:39 PM) (07/23/21 5:09 PM) *L* (07/23/21 3:15 PM ) Temperature [96.8-100.4 DegF] 99.3 DegF (07/23/21 12:41 PM) Mode of Delivery (Oxygen) Room air Room air Room a ir (07/23/21 6:39 PM) (07/23/21 5:09 PM) (07/23/21 3:1 5 PM) Blood pressure sites Arm, right Arm, right Arm, right (07/23/21 6:39 PM) (07/23/21 5:09 PM) (07/23/21 3:1 5 PM) Temperature Route Oral (07/23/21 12:41 PM) Social History Social History Type Response Smoking Status 5-9 cigarettes (between 1/4 to 1/2 pack)/day in last 30 days entered on: 03/27/19 Sex
--- OUTSIDE RECORDS SUMMARY | 2023-01-12 21:35 | XMS_ITS | Continuity of Care Document ---
:2000 Author Organization [facility] Address [address] [place] [id number]- Care Team Providers Name Role Phone Brittany He MD Primary Care Physician [facility]counter [facility] Date(s): 01/04/22 - 01/04/[address] [address]- Discharge Disposition: A-D/C Home Attending Physician: Lara Caballero MD Admitting Physician: Lara Caballero MD Referring Physician: Not on Staff, Referring [...] vis [id number] Note: VIS dated 07/05/10 and [id number] Note: VIS DATED 05/27/2012 GIVEN.5Admin Note: VIS DATED 02/22/10. [id number] Note: vis 12.28.06 [id number] Note: gardasil #1 / vis 12/28/06 [id number] Note: vis given 02/06/089Admin Note: vis 07/04 [...] 07/23/21 16:13:00 EDT, Film, [id number], PRITESH-X: [id number], 2 film Sublingual Daily,Instr:dissolve under the tongue, 165, cm, 06/26/21 18:36:00 EDT, Heigh... 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 Sleep problem (initiation)(Confirmed) 12/23/09 Active Results Radiology Reports Exam Date Time Procedure Performing Provider Status 01/04/22 3:26 PM Shoulder Min 2 Views Right Bouchra Grover; Dot h (Verified) Notes:(Shoulder Min 2 Views Right) Reason For Exam: PainRESULT: Shoulder Min 2 Views Right Examination: Right shoulder performed on 01/04/22. History: Hx of Present Illness: pt states she woke up with R shoulder pain since this am. No fall, no trauma. Pt states she belives it may be d t overuse, carrying her baby. Denies numbness or tingling. Full ROM with pain on abduction of shoulder; Reason: Pain; Clinical Question(s): Fracture Findings: Four views of the right shoulder are submitted. The humeral head is normally aligned with the glenoid. No fractures are seen. The AC joint is intact. The visualized ribs and lung parenchyma are unremarkable. IMPRESSION: There is no acute osseous abnormality. WSN: [id number] Ordering Physician: Lara Caballero MD Dictated By: Valentina Coombs MD Dictated Date/Time: 01/04/22 3:32 pm Reviewed By: Valentina Coombs MD Signed By: Valentina Coombs MD Signed Date/Time: 01/04/22 3:32 pm Transcribed By: ALANIS Transcribed Date/Time: 01/04/22 3:30 pm Vital Signs Most recent to oldest [Reference Range]: 1 2 Height 170 cm 170 cm (2/9/22 1:11 PM) (01/04/22 1:00 PM) Weight 68.5 kg 68.5 kg (01/04/22 1:11 PM) (01/04/22 1:00 PM) Oxygen Saturation [94-100 %] 98 % 99 % (01/04/22 1:00 PM) (01/04/22 12:58 PM) Pulse Rate [55-90 bpm] 78 bpm 100 bpm (01/04/22 1:00 PM) *H* (01/04/22 12:58 PM) Body Mass Index [18.5-24.99] 23.7 (01/04/22 1:00 PM) Blood Pressure [90-138/55-84 mm Hg] 132/74 mm Hg (01/04/22 1:00 PM) Respiratory Rate [16-30 br/min] 18 br/min (01/04/22 1:00 PM) Temperature [96.8-100.4 DegF] 98.3 DegF (01/04/22 1:00 PM) Mode of Delivery (Oxygen) Room air Room air (01/04/22 1:00 PM) (01/04/22 12:58 PM) Blood pressure sites Arm, left (01/04/22 1:00 PM) Temperature Route Oral (01/04/22 1:00 PM) Dry Weight 68.5 kg 68.5 kg (01/04/22 1:11 PM) (01/04/22 1:00 PM) Weight Obtained Via Standing scale (01/04/22 1:00 PM) Dry Weight Obtained Via Standing scale (01/04/22 1:00 PM) Social History Social History Type Response Smoking Status 5-9 cigarettes (between 1/4 to 1/2 pack)/day in last 30 days entered on: 03/27/19 Sex
[2023-01-12] MEDS: LORazepam 1 MG TABLET 2 MG PO (22:05)
--- NOTE | 2023-01-12 22:06 | PC.NURSE ---
pt states generalize pain of 9/10; d/t pt appearing very anxious provider was also made aware
--- NOTE | 2023-01-13 00:53 | PC.NURSE ---
report given to PRUDENCIO Meehan pt to [place] [id number]
--- NOTE | 2023-01-13 06:52 | PC.NURSE ---
Patient slept through the night, no distress observed/reported, behavior non concerning, awaiting urine sample, care consult ordered/pending care team evaluation, patient is currently not on any home medication, will continue to monitor.
[2023-01-13 06:56] VITALS: BP 96/64; PULSE 88; RESP 14; TEMP 36.9; O2SAT 97
[2023-01-13 08:07] LABS: Appearance Urine Turbid; Color Urine Yellow; Glucose Urine UA Negative (Negative); Leukocyte Esterase Urine Small (1+) (Negative); Nitrite Urine Positive (Negative); PH >= 9.0 (5.0-9.0); UMIC TRIGGER UACC YES; Urine Blood Negative (Negative); Urine Ketones Negative (Negative); Urine Protein Trace mg/dL (Neg-Trace)
[2023-01-13 08:09] LABS: Bacteria Urine 4+ (None Seen); Hyaline Casts Urine 0-2 /LPF (0-2); RBC Urine 0-2 /HPF (0-2); UACC Culture Trigger YES
[2023-01-13 08:29] LABS: Amphetamine Screen Urine Not Detected (Not Detect); Barbiturates, Urine Not Detected (Not Detect); Benzodiazepines Screen Urine Not Detected (Not Detect); Cannabinoid Screen Urine Not Detected (Not Detect); Cocaine Screen Urine POSITIVE (Not Detect); Fentanyl, urine POSITIVE (Not Detect); Opiate Screen Urine POSITIVE (Not Detect); Phencyclidine Screen Urine Not Detected (Not Detect)
[2023-01-13] MEDS: LORazepam 1 MG TABLET 2 MG PO ×2 (09:45→18:52)
--- NOTE | 2023-01-13 10:10 | MHC.CARE ---
Patient sleeping soundly, unable to wake. CARE Team will evaluate when patient is awake and alert.
--- NOTE | 2023-01-13 13:24 | MHC.CARE ---
CARE team attempted to meet with pt to complete assessment. She continues to not be rousable and able to engage in conversation.
--- NOTE | 2023-01-13 15:13 | MHC.RECOVRN ---
Met with pt in 6 to assess for opioid withdrawal. Pt laying in bed, eyes closed, appears anxious, irritable, restless, and diaphoretic. Pt reports 5 bundles heroin daily, INH, as well as crack cocaine. Pt continues to state I do everything. Last use [employer]. Pt reports hx Suboxone, denies hx methadone. Would like methadone to address withdrawal symptoms. Will be able to conduct full interview once withdrawal symptoms are managed. Discussed with provider. Plan to administer 20 mg methadone.
[2023-01-13] MEDS: methADONE HCl 20 MG/2 ML ORAL.CONC PO (15:45)
--- NOTE | 2023-01-13 18:20 | MHC.RECOVSUP ---
? Reason for consult: Recovery Support o Current location: ?[facility] o Identified substance use concern: MANN Heroine/Crack? - Withdrawal - Support ? ?Intervention: o MAT started or to be started o Community resources provided o Harm reduction discussion ? Plan: o Referral to [facility] o Follow up tomorrow ? ? Additional information:?Consultation with Care Team before entry. Pt is physically experiencing symptoms from detoxing off heroine. She is a 20 yr old single mother of a 2 year old old. Pt resides with mother in [place], has an open DCF and an open criminal case out of [place]. 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 Pt would rather return to her mothers residence, participate in IOP, obtain a Medical Record Transcriber and [facility] referral. Medical Record Transcriber left community resources and will submit the referrals. A follow up tomorrow with patient. Mother is Lila [phone]
[2023-01-13] MEDS: methADONE HCl 20 MG/2 ML ORAL.CONC 10 MG PO (18:53)
[2023-01-14] VITALS: RESP 16
--- NOTE | 2023-01-14 04:08 | PC.NURSE ---
Patient slept through whole evening and night, no distress observed/reported, respiration +/=/non-labored bilaterally, asymptomatic of opiates withdrawal, VSS, no medication administered during the shift, patient will be re-evaluated by care team in the morning, behavior non concerning, will continue to monitor.
[2023-01-14 05:52] VITALS: BP 103/68; PULSE 90; RESP 17; TEMP 36.3; O2SAT 97
[2023-01-14 06:00] VITALS: PULSE 90
[2023-01-14] MEDS: LORazepam 1 MG TABLET 2 MG PO (07:56)
--- NOTE | 2023-01-14 10:52 | MHC.RECOVRN ---
Spoke with pt this morning to follow up regarding methadone. Pt laying in bed, wakes to voice, irritable and diaphoretic. Discussed [facility] and educated pt regarding services provided, pt declines Suboxone. Pt would like to continue methadone titration and connect to OTP. Pt does not have picture ID, however, has been to [facility]. Email was sent to Lorna Mcmullen requesting copy of ID. T/w was notified pt is requesting to discharge. OTPs are closed tomorrow, 01/15, due to President's Day, pt would be unable to walk in to receive methadone dose. T/w has also not received copy of pts ID, referral to OTP will not be accepted without it. At this time, unable to connect to OTP due to lack of ID as well as inability to walk in tomorrow. Discussed with CARE Team. Recommendation for ATS.
[2023-01-14 11:39] VITALS: BP 99/75; PULSE 106; RESP 17; TEMP 36.9; O2SAT 99
--- NOTE | 2023-01-14 12:45 | MHC.CARE ---
Spoke to patient's parents, they petitioned for a [address] and the warrant was granted at 3:00 Sunday afternoon so patient would not be picked up until Sunday, family thought she could stay here until then. Explained to parents that their daughter has been cleared from needing inpatient psychiatric admission, unfortunately she will be discharged today. They plan to call the police and have her picked up here and believe they will hold her in protective custody until Sunday. Family is very concerned as they had been looking for patient for the last 6 months and are certain she will disappear again.
--- NOTE | 2023-01-14 13:05 | PC.NURSE ---
RECEIVED CALL FROM [facility] [phone], REQUESTING TO BE NOTIFIED OF PT DISCHARGE GIVEN THERE IS A WARRANT OUT FOR [address]. SEE CARE TEAM NOTE.
== END 2023-01-14 14:30 | disposition home or self-care (01) ==
PROVIDERS: Emergency Provider Emergency Medicine
DX: R45.851 Suicidal ideations (principal); R40.0 Somnolence; F19.10 Other psychoactive substance abuse, uncomplicated; Z20.822 Contact with and (suspected) exposure to COVID-19; Z79.899 Other long term (current) drug therapy
CPT/HCPCS: 80048; 80076; 80307; 81001; 82077; 84702; 85025; 87086; 87088; 87186; 87635; 99285; S9485